=== PATIENT | male | born 1995 | race Caucasian/White ===

== ENCOUNTER 2016-11-04 19:55 | Emergency (ER) | payer OTHER | END 2016-11-04 21:20 | disposition home or self-care (01) | LOC: ER 19:55 | DX: S43.005A Unspecified dislocation of left shoulder joint, initial encounter (principal); W17.89XA Other fall from one level to another, initial encounter; Z88.2 Allergy status to sulfonamides | CPT/HCPCS: 96361; 96374; 96375 ==